=== PATIENT | female | born 1985 | race African-American/Black ===

== ENCOUNTER 2020-02-04 17:58 | Emergency (ER) | payer OTHER ==
[2020-02-04 18:09] VITALS: BP 131/71; PULSE 71; TEMP 98.5; BMI 23.2
[2020-02-04] MEDS ORDERED: IBUPROFEN 600 MG TABLET (FP) PO ONE ×2 (18:55→19:00)
== END 2020-02-04 19:06 | disposition home or self-care (01) ==
LOC: JERFT 17:58
DX: M25.511 Pain in right shoulder (principal); S00.93XA Contusion of unspecified part of head, initial encounter; V89.2XXA Person injured in unspecified motor-vehicle accident, traffic, initial encounter
CPT/HCPCS: 99283-25